=== PATIENT | female | born 1955 | race Caucasian/White ===

== ENCOUNTER → 2019-07-13 | Outpatient (CLI) | payer OTHER ==
--- NOTE | 2019-07-13 14:56 | KCIC ---
EXAM: Chest CT without intravenous contrast. HISTORY: Pulmonary nodule. TECHNIQUE: Computed tomographic images of the chest were obtained without contrast. Multiplanar reformatting was performed. *One or more of the following individualized dose reduction techniques were utilized for this examination: 1. Automated exposure control. 2. Adjustment of the mA and/or kV according to patient size. 3. Use of iterative reconstruction technique. COMPARISON: None. FINDINGS: The heart is normal in size. The aorta is normal in caliber. There are calcified right hilar granulomas. There are few nonspecific mediastinal and hilar lymph nodes which are not pathologically enlarged. There is no pneumothorax or pleural effusion. There is multifocal groundglass opacity primarily within an upper lobe and central distribution. No consolidation is seen. No solid nodule is seen. The upper abdomen is unremarkable. There is no suspicious osseous lesion. There are degenerative changes throughout the thoracic spine. There are multiple endplate Schmorl's nodes. IMPRESSION: Nonspecific multifocal groundglass opacity throughout both lungs in a minimally upper lobe and central distribution. This may be infectious or inflammatory in etiology. Follow-up can be performed to confirm resolution. No consolidation or suspicious solid nodule is seen. Electronically signed by: Padmini Leroy MD (07/13/2019 2:54 PM) [place] [id number]
== END | disposition home or self-care (01) ==
LOC: KCIC CT 13:23
PROVIDERS: ATTEND Internal Medicine Critical Care Medicine
DX: J84.10 Pulmonary fibrosis, unspecified (principal); R91.1 Solitary pulmonary nodule; M51.44 Schmorl's nodes, thoracic region; F17.200 Nicotine dependence, unspecified, uncomplicated
CPT/HCPCS: 71250